=== PATIENT | male | born 1990 | race Caucasian/White ===

== ENCOUNTER → 2020-10-02 10:11 | Outpatient (CLI) | payer OTHER, SELFPAY ==
[2020-10-02 11:18] LABS: COVID19 -Nasal RAPID Negative (Negative)
== END ==
PROVIDERS: Visit Provider Surgery
DX: Z20.822 Contact with and (suspected) exposure to COVID-19 (principal)
CPT/HCPCS: 87635; C9803

== ENCOUNTER 2020-10-05 06:22 | Day surgery (SDC) | payer OTHER, SELFPAY ==
[2020-09-29 15:03] VITALS: BMI 29.2
--- NOTE | 2020-10-05 | PATH_ITS ---
[facility] Accession Number: [id number] . 01 Material submitted: . PART A: breast - RIGHT BREAST PART B: breast - RIGHT BREAST, SUPERIOR MARGIN PART C: breast - RIGHT BREAST, MEDIAL MARGIN PART D: breast - RIGHT BREAST, INFERIOR MARGIN . 01 Clinical history: . A-D: GYNECOMASTIA . 02 Diagnosis: A. Right Breast, Partial Mastectomy: Benign breast parencyhma with features consistent with gynecomastia. Negative for atypical hyperplasia, in situ or invasive carcinoma. . B. Right Breast, Superior Margin, Excision: Benign breast parencyhma with features consistent with gynecomastia. Negative for atypical hyperplasia, in situ or invasive carcinoma. . C. Right Breast, Medial Margin, Excision: Benign breast parencyhma with features consistent with gynecomastia. Negative for atypical hyperplasia, in situ or invasive carcinoma. . D. Right Breast, Inferior Margin, Excision: Benign breast parencyhma with features consistent with gynecomastia. Negative for atypical hyperplasia, in situ or invasive carcinoma. . [facility] 10/07/2020 1631 Local . 02 Electronically signed: . Alexi Sheikh MD, PhD, Pathologist NPI- [id number] . 01 Gross description: . A. Specimen A is received in formalin labeled right breast gynecomastia and consists of a right lumpectomy specimen. Weight: 28 grams. Measurement: 6.0 cm from superior to inferior x 5.7 cm from medial to lateral x 3.2 cm from anterior to posterior. Skin Ellipse: Absent. Wire: Absent. Margins: The specimen is oriented with a short suture designated superior, a long suture designated lateral, and a double suture designated deep. The specimen is inked as follows: superior blue, inferior green, anterior red, posterior black, medial yellow and lateral orange. Slice: From superior to inferior into sixteen slices. Lesion: No lesions identified. Other: The specimen is composed of approximately 50 percent jon-white fibrous tissue and 50 percent jon-yellow lobulated adipose tissue. Mold Mechanic sections are submitted. A1 - Slice 1, superior margin, fundraising sale representative perpendicular sections. A2-A8 - Mold Mechanic alternating sections starting with slice 3. A9 - Slice 16, inferior margin, fundraising sale representative perpendicular sections. Formalin fixation time: Approximately 31 hours. . B. Specimen B is received in formalin labeled right breast gynecomastia superior margin and consists of two unoriented jon-yellow fragments of fibroadipose tissue weighing 4 grams and measuring 1.9 x 1.5 x 1.0 cm and 3.5 x 2.2 x 1.5 cm, sectioned to reveal approximately 50 percent jon-white fibrous tissue and 50 percent jon-yellow lobulated adipose tissue. The specimen is entirely submitted in cassettes B1-B6. . C. Specimen C is received in formalin labeled right breast gynecomastia medial margin and consists of a 3.0 x 1.5 x 0.9 cm jon-yellow fragment of fibroadipose tissue, which is inked blue, serially sectioned and entirely submitted in cassettes C1-C3. . D. Specimen D is received in formalin labeled right breast gynecomastia inferior margin and consists of three jon-yellow fragments of fibroadipose tissue weighing 5 grams and measuring 4.5 x 3.0 x 2.5 cm in aggregate. The fragments are inked blue, serially sectioned and entirely submitted in cassettes D1-D6. ([id number]) /[facility] 10/06/2020 1709 Local . 02 Pathologist provided ICD-10: N62 . 02 CPT . 840635, 371283, 693603, [id number] Performed at: 01 [facility] [address], [place], [place] [id number] MD Navid Frazier MD Phone: [phone] Performed at: 02 [facility] [place], [place] [id number] MD Britt Leigh MD Phone: [phone]
[2020-10-05 07:13] VITALS: BP 152/98; PULSE 96; RESP 14; TEMP 36.6; O2SAT 99; BMI 29.2
[2020-10-05] MEDS: LACTATED RINGERS 1,000 ML 100 ML IV (07:13)
--- NOTE | 2020-10-05 07:34 | PM.HP.1 ---
History of Present Illness History of Present Illness Date Patient Seen: 10/05/20 Time Patient Seen: 07:35 Chief complaint: [facility] Narrative: This is a 30-year-old man who has had about 2 years of swelling in the right breast. It is tender to the touch and bothers him when he gets bumped. He has not noticed any nipple discharge or any axillary swelling or tenderness. [facility] [place] [facility] [place] [facility] [place] [facility] consistent with gynecomastia. Labs have been ordered but have not been drawn yet to rule out secondary gynecomastia. His mother had breast cancer at age 65, but he is not sure if she had any genetic studies. He denies any other known family history of breast cancers or other abnormalities of the breast. The patient says he has always had a thicker upper chest on the left side, and this has been the same way for many years. The lower outer quadrant of the right breast is where he has noticed the increase in size which is tender and bothersome to him. ROS: Thirteen system review is otherwise negative other than as mentioned below and in HPI. PE: GENERAL: Well groomed and cooperative. Appears stated age. Answers questions promptly and appropriately. Vital signs noted. HENT: Normocephalic, atraumatic. Hearing intact. EYES: Conjunctiva pink, sclera white, no periorbital swelling. CARDIOVASCULAR: Regular rate. No pedal edema. RESPIRATORY: Non-tachypneic, breathing comfortably on room air. GASTROINTESTINAL: Abdomen soft and non-distended GENITALURINARY: No flank tenderness. Testicular exam is negative for any palpable masses, tenderness, asymmetry, or atrophy. Testicles are normal firmness and uniform size and shape bilaterally. Breast exam: Bilateral breasts are sightly asymmetrical, with slightly thicker fat tissue on the upper chest on the left some, and slightly larger lower outer quadrant of the right breast. There is no discrete palpable mass on the right breast, no nipple discharge, moderate tenderness, no palpable axillary masses MUSCULOSKELETAL: Equal tone and mass bilaterally. SKIN: Warm, dry, soft, appropriate color for ethnicity. No other lesions, rashes, or wounds. NEURO: Alert and Oriented X 3. No gross sensory deficits, or cognitive issues. PSYCH: Appropriate affect and mood. Patient History Medical History HTN (hypertension) Family & Social History Family History Father Hypertension Social History: household members friend(s) Tobacco & Substance use: Smoking Status Never smoker alcohol intake current alcohol intake frequency a few times a month Substance Use Type does not use Meds Home Medications and Allergies Home Medications Medication Instructions Recorded Confirmed Type lisinopril 20 mg tablet 20 mg PO DAILY 09/03/20 10/05/20 History Allergies Allergy/AdvReac Type Severity Reaction Status Date / Time No Known Drug Allergies Allergy Verified 10/05/20 07:20 Exam Vital Signs (past 8 hours): - 10/05/20 07:13 Temperature 97.8 F Pulse Rate 96 H Respiratory Rate 14 Blood Pressure 152/98 H Pulse Oximetry 99 Oxygen Delivery Method Room Air Assessment & Plan Assessment and plan (1) Gynecomastia: Status: Acute Assessment & Plan narrative: This is a 30-year-old man with right-sided idiopathic gynecomastia. Risks and benefits of surgery been discussed with him including risk of bleeding infection, damage to my structures, recurrence, need for additional procedures, scarring, dissatisfaction with cosmetic outcome. The patient desires to proceed with excision of his right side gynecomastia. Plan: Proceed to surgery for the planned procedure as above COVID-19 COVID-19 status: Negative Result date/Date tested (Pos, Neg/Pending): 10/02/20 Time Spent With Patient Time with patient: 15-24 minutes Quality VTE Deep Vein Thrombosis/Pulmonary Embolism Present on Admission: No
[2020-10-05] MEDS: CEFAZOLIN 1 GM VIAL 2 GM IV (07:50)
--- NOTE | 2020-10-05 08:10 | SUR.OPER ---
Supine on padded OR bed, head on pillow, arms secured on padded arm boards at <90 degrees abduction, legs uncrossed, safety belt at thigh, tape over blanket over lower legs.
[2020-10-05] MEDS: BUPIVACAINE 0.25% (PF) VIAL 30 ML INJ (08:13)
[2020-10-05] MEDS: EPINEPHrine 1 MG/ML 0.15 MG SUBCUT (08:16)
[2020-10-05 09:19] VITALS: BP 147/93; PULSE 84; RESP 13; TEMP 36.6; O2SAT 96
[2020-10-05 09:24] VITALS: BP 147/101; PULSE 100; RESP 23; O2SAT 97
[2020-10-05 09:29] VITALS: BP 147/96; PULSE 92; RESP 20; O2SAT 97
--- NOTE | 2020-10-05 09:33 | PM.OP.1 ---
Operative Date/Time/Diagnoses Date of procedure: 10/05/20 Time of procedure: 09:33 Pre-op diagnosis: Right breast idiopathic gynecomastia Post-op diagnosis: same Procedure & Clinicians Procedure: Right breast partial mastectomy for gynecomastia Same procedure as scheduled: Yes Indications: Idiopathic gynecomastia, right breast. Right breast pain. Surgeon: Mirta Vora Click Yes if Unassisted: Yes Anesthesia Type: General Operative Notes Findings: Right breast hypertrophic glandular tissue Specimen(s): other (Right breast gynecomastia marked with short stitch superior, long stitch lateral, double stitch deep. Additional superior, medial, and inferior margins.) Estimated Blood Loss (mL): 5 Procedure in detail: The patient was brought into the OR and placed supine on the OR table. Sequential compression devices were placed on both legs and turned on. General anesthesia was induced and the patient was intubated by the anesthesiologist. Appropriate perioperative antibiotics were given. The chest and axillae were prepped and draped in sterile fashion. Surgical time out was performed. Local anesthetic was infiltrated into the skin, and a 5cm curvilinear circumareolar incision was made on the inferior margin of the areaola. Dissection was carried down through the subcutaneous fat to the avascular plane between the breast and subcutaneous tissue. Dissection was then carried circumferentially around the abnormal dense glandular tissue of the patient's gynecomastia mass until the entire specimen was removed. It was then marked with a short single stitch superiorly, double stitch deep, and long stitch laterally. An additional margin was taken superiorly, medially, and inferiorly until only soft fatty normal appearing breast tissue was left. Local anesthetic with a total of 30mL of 0.25% Marcaine with epi was used for the entire case to infiltrate the wound and skin. Good hemostasis was achieved with cautery. The wound was irrigated and dried. The wound was then closed with 3-0 Vicryl, and subcuticular 4-0 Monocryl, and sealed with dermabond. The patient was then awakened from anesthesia and extubated. Needle sponge and instrument counts were correct x 2. A breast binder was placed on the patient with extra padding over the breast wound using 4x4 gauze. The patient was transferred to the PACU in stable condition. Complications: none Post-operative Condition: stable Disposition: PACU
[2020-10-05 09:41] VITALS: BP 140/90; PULSE 101; RESP 14; TEMP 37; O2SAT 97
[2020-10-05 09:44] VITALS: BP 138/90; PULSE 100; RESP 14; TEMP 37.2; O2SAT 97
== END 2020-10-05 10:00 | disposition home or self-care (01) ==
PROVIDERS: Referring Provider Surgery; Visit Provider Surgery
PROC: (CPT 19301; principal; 2020-10-05 07:45)
DX: N62 Hypertrophy of breast (principal); I10 Essential (primary) hypertension
CPT/HCPCS: 19300; J0171; J0690; J1100; J2250; J2405; J2704; J3010